=== PATIENT | female | born 2000 | race Hispanic/Latino ===

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

== ENCOUNTER 2022-12-16 20:04 | Observation (INO) | payer MEDICAID ==
[~2022-12-16] VITALS: Ht 149.9 cm; Wt 68.0 kg
[2022-12-16 21:30] LABS: APPEARANCE,URINE CLEAR (CLEAR); BILIRUBIN,URINE NEGATIVE (NEGATIVE); COLOR,URINE YELLOW (YELLOW); GLUCOSE, URINE (UA) NEGATIVE (NEGATIVE); KETONES,URINE NEGATIVE (NEGATIVE); LEUKOCYTE ESTERASE ,URINE NEGATIVE Leu/uL (NEGATIVE); NITRATE,URINE NEGATIVE (NEGATIVE); OCCULT BLOOD,URINE NEGATIVE (NEGATIVE); PROTEIN,URINE 20 mg/dL (NEGATIVE); UROBILINOGEN,URINE 0.2 mg/dL (0.2-1.0)
[2022-12-16 21:32] LABS: ADD UA MICROSCOPIC YES
[2022-12-16 21:38] LABS: BACTERIA,URINE RARE /HPF (None Seen); MUCUS,URINE FEW LPF (None Seen); RBC,URINE 0-1 /HPF (0-1); SQUAMOUS EPITHELIAL CELL,UR MOD /HPF (0-2); WBC,URINE 0-1 /HPF (0-1)
[2022-12-16 22:45] VITALS: BP 122/80; PULSE 88; RESP 20; O2SAT 100
[2022-12-16 22:55] LABS: BASOPHILS # (AUTO) 0.05 K/uL (0.00-0.20); BASOPHILS % (AUTO) 0.4 % (0.0-5.0); EOSINOPHILS # (AUTO) 0.78 K/uL (0.00-0.70); EOSINOPHILS % (AUTO) 6.8 % (0.0-8.0); IMMATURE GRANULOCYTE ABSOLUTE 0.06 K/uL (0-1); LYMPHOCYTES # (AUTO) 1.9 K/uL (1.0-4.8); LYMPHOCYTES % (AUTO) 16.4 % (21.0-51.0); MEAN CORPUSCULAR HGB CONC 33.6 g/dL (32.0-36.0); MEAN CORPUSCULAR VOLUME 89.3 fL (80-100); MONOCYTES # (AUTO) 0.8 K/uL (0.1-1.0); MONOCYTES % (AUTO) 6.7 % (3.0-13.0); NEUTROPHILS # (AUTO) 7.9 K/uL (1.8-7.7); NEUTROPHILS % (AUTO) 69.2 % (40.0-77.0); PLATELET COUNT (AUTO) 260 K/uL (130-400); RED BLOOD CELL COUNT(AUTO) 4.03 MIL/uL (4.00-5.50); RED CELL DISTRIBUTION WIDTH 12.9 % (11.0-15.5); WHITE BLOOD COUNT (AUTO) 11.4 K/uL (4.8-10.8)
[2022-12-16 23:05] LABS: RAPID GROUP A STREP negative (NEGATIVE)
[2022-12-16 23:06] LABS: CREATININE 0.6 mg/dL (0.5-1.5); POTASSIUM 3.9 mmol/L (3.5-5.1)
[2022-12-16 23:11] LABS: ALBUMIN 2.9 g/dL (3.5-5.0); BILIRUBIN,TOTAL 0.1 mg/dL (0.2-1.0); TOTAL PROTEIN, SERUM 6.7 g/dL (6.0-8.3)
[2022-12-16 23:14] LABS: COVID19 (SARS ANTIGEN RAPID) PRESUMPTIVE NEGATIVE (NEGATIVE); INFLUENZA TYPE A Negative For Type A (NEGATIVE); INFLUENZA TYPE B Negative For Type B (NEGATIVE)
[2022-12-16] MEDS ORDERED: FLUT9.9S NS (23:26)
[2022-12-16] MEDS ORDERED: ACET-66 PO (23:26)
[2022-12-16] MEDS ORDERED: GUAIF10 PO (23:26)
[2022-12-16] MEDS ORDERED: AZIT250T9 PO (23:26)
[2022-12-16] MEDS ORDERED: LIDO1ADH82 TP (23:26)
== END 2022-12-17 00:35 | disposition home or self-care (01) ==
LOC: EDH 20:04 → LDH 20:05
PROVIDERS: ADMIT Obstetrics & Gynecology; ATTEND Obstetrics & Gynecology
DX: O26.892 Other specified pregnancy related conditions, second trimester (principal); Z20.822 Contact with and (suspected) exposure to COVID-19; M94.0 Chondrocostal junction syndrome [Tietze]; R07.89 Other chest pain; O99.512 Diseases of the respiratory system complicating pregnancy, second trimester; J01.90 Acute sinusitis, unspecified; Z3A.24 24 weeks gestation of pregnancy
CPT/HCPCS: 99284; 76705; 76805; 87426; 80053; 83690; 85025; 87880; 87804 ×2; 81001; 36415; G0378

== ENCOUNTER 2023-02-26 22:20 | Observation (INO) | payer MEDICAID ==
[~2023-02-26] VITALS: Ht 152.4 cm; Wt 77.1 kg
[~2023-02-26 22:20] MED LIST: ACET-66 PO; AZIT250T9 PO; FLUT9.9S NS; GUAIF10 PO; LIDO1ADH82 TP
[2023-02-26 22:21] VITALS: BP 131/66; PULSE 96; RESP 20
[2023-02-26 22:47] LABS: APPEARANCE,URINE CLEAR (CLEAR); BILIRUBIN,URINE NEGATIVE (NEGATIVE); COLOR,URINE YELLOW (YELLOW); GLUCOSE, URINE (UA) NEGATIVE (NEGATIVE); KETONES,URINE NEGATIVE (NEGATIVE); LEUKOCYTE ESTERASE ,URINE 250 Leu/uL (NEGATIVE); NITRATE,URINE NEGATIVE (NEGATIVE); OCCULT BLOOD,URINE NEGATIVE (NEGATIVE); PROTEIN,URINE 20 mg/dL (NEGATIVE); UROBILINOGEN,URINE 0.2 mg/dL (0.2-1.0)
[2023-02-26 23:09] LABS: ADD UA MICROSCOPIC YES
[2023-02-26 23:15] LABS: BACTERIA,URINE RARE /HPF (None Seen); MUCUS,URINE RARE LPF (None Seen); SQUAMOUS EPITHELIAL CELL,UR FEW /HPF (0-2)
== END 2023-02-27 00:22 | disposition home or self-care (01) ==
LOC: EDH 22:20 → LDH 22:29
PROVIDERS: ADMIT Obstetrics & Gynecology; ATTEND Obstetrics & Gynecology
DX: O42.913 Preterm premature rupture of membranes, unspecified as to length of time between rupture and onset of labor, third trimester (principal); O26.893 Other specified pregnancy related conditions, third trimester; N89.8 Other specified noninflammatory disorders of vagina; Z3A.35 35 weeks gestation of pregnancy; Z79.899 Other long term (current) drug therapy
CPT/HCPCS: 87088; 81001; 76805; G0378 ×2; G0379

== ENCOUNTER 2023-09-05 18:55 | Emergency (ER) | payer MEDICAID ==
[~2023-09-05] VITALS: Ht 152.4 cm; Wt 68.0 kg
[2023-09-05] MEDS: ACETAMINOPHEN 500 MG TABLET PO ONE (19:19)
[2023-09-05] MEDS: CEFTRIAXONE 1G VIAL IM ONE (19:20)
[2023-09-05] MEDS ORDERED: AMOX1TAB16 PO (20:31)
[2023-09-05] MEDS ORDERED: BENZ-39 PO (20:31)
[2023-09-05 21:01] VITALS: BP 115/69; PULSE 68; RESP 20; O2SAT 99
== END 2023-09-05 21:02 | disposition home or self-care (01) ==
LOC: EDH 18:55
DX: U07.1 COVID-19 (principal); J03.90 Acute tonsillitis, unspecified; Z79.899 Other long term (current) drug therapy
CPT/HCPCS: 99283; 87426; 87880; 96372; J0696